=== PATIENT | female | born 1980 | race Caucasian/White ===

== ENCOUNTER → 2021-07-14 03:35 | Outpatient (CLI) | payer BC, SELFPAY ==
[2021-07-14 18:11] LABS: SARS-CoV-2 RNA PCR Negative
== END ==
PROVIDERS: PCP Family Medicine; Visit Provider Family Medicine
DX: R05.9 Cough, unspecified (principal); R09.89 Other specified symptoms and signs involving the circulatory and respiratory systems; R43.0 Anosmia; R43.2 Parageusia; Z20.822 Contact with and (suspected) exposure to COVID-19
CPT/HCPCS: C9803; U0003; U0005

== ENCOUNTER → 2022-01-24 10:59 | Outpatient (CLI) | payer BC, SELFPAY ==
--- NOTE | ~2022-01-24 | MMUS_ITS ---
EXAMINATION: MM diagnostic ashlee BI w leslie, US breast BI complete HISTORY: Left bloody nipple discharge for 5 days TECHNIQUE: Bilateral 3-D tomosynthesis images were performed and synthetic 2-D images were generated. Rotated medial right craniocaudal view. CAD analysis was submitted and interpreted. High resolution bilateral complete breast ultrasound including all 4 quadrants and subareolar areas was performed. COMPARISON: None BREAST PARENCHYMAL COMPOSITION: The breasts are heterogeneously dense, which may obscure small masses . FINDINGS: MAMMOGRAPHIC FINDINGS: Possible 8.7 mm irregular mass in upper mid left breast (MLO Tomosynthesis image 53/93). No correlate however is noted on CC view or ML view. No suspicious mass or architectural distortion, malignant calcification, skin thickening or retractio n is detected otherwise. Occasional bilateral benign calcifications. ULTRASOUND: No suspicious mass or shadowing of either breast is detected. Multiple bilateral breast c ysts are noted: Right breast: 12:00 3 cm from nipple: 7 x 4.7 x 8.1 mm cyst 1:00 4 cm from nipple: 7 mm simple cyst 1:00 2 cm from nipple: 3.3 x 2.4 x 4.6 mm cyst 4:00 3 cm from nipple: 4.8 x 4 x 4.9 mm cyst 5:00 3 cm from nipple: 7.2 x 5.1 x 4.4 mm cyst 8:00 7 cm from nipple: 5.1 x 5.8 x 5 mm cyst 10:00 5 cm from nipple: 3.6 x 6.4 mm cyst 10:00 4 cm from nipple: 6.8 x 6.9 x 4.3 mm cyst Left breast: 12:00 1 cm from nipple: 5.1 x 2.8 x 5.4 mm cyst 2:00 7 cm from nipple: 3.8 x 3.6 x 4.4 mm cyst 2:00 5 cm from nipple: 5 x 4.2 x 4.9 mm cyst 4:00 6 cm from nipple: Parallel circumscribed hypoechoic lesion measuring 2.8 x 4.9 x 5 mm, without i nternal vascularity or posterior shadowing, with some through transmission, likely a septated cyst 4:00 6 cm from nipple: 3.2 x 2.6 x 2.8 mm cyst 10:00 5 cm from nipple: 5.3 x 3.3 x 4.4 mm cyst 10:00 5 cm from nipple: 2.5 x 3.4 mm x 4.1 mm cyst Subareolar area: 5.9 x 3.7 x 5.7 mm cyst IMPRESSION: 1. Bilateral breast cysts; no mammographic evidence of malignancy 2. Routine mammographic screening is recommended., Galactography may be of benefit as clinically appr opriate. BI-RADS Category 2: Benign finding(s). Reviewed, dictated and finalized at location A. IMPRESSION: 1. Bilateral breast cysts; no mammographic evidence of malignancy 2. Routine mammographic screening is recommended., Galactography may be of bene fit as clinically appropriate. BI-RADS Category 2: Benign finding(s).
== END ==
PROVIDERS: PCP Family Medicine; Visit Provider Physician Assistant
DX: N64.52 Nipple discharge (principal); Z80.3 Family history of malignant neoplasm of breast
CPT/HCPCS: 76641; 77062; 77066; G0279

== ENCOUNTER 2023-05-05 00:54 | Day surgery (SDC) | payer BC, SELFPAY ==
[2023-04-26 10:20] VITALS: BMI 28.3
[2023-05-05 07:43] VITALS: BP 135/97; PULSE 74; RESP 20; TEMP 36.6; O2SAT 100
[2023-05-05] MEDS: LACTATED RINGERS 1,000 ML 150 ML IV CONT (07:57)
--- NOTE | 2023-05-05 08:39 | WPDANESEPPF ---
Anes - Initial Pre Proc Eval Procedure: Operation Date: 05/05/23 09:00 Proposed Procedures p Colonoscopy - Rafa Senior MD Date/Time: 05/05/23 08:39 Surgeon: Rafa Senior MD Pre Op Diagnosis: diarrhea Patient Data Age: 42 Gender: F Height: 1.57 m Weight: 72.9 kg Last Vital Signs Temp 97.8 F 05/05/23 07:43 Pulse 74 05/05/23 07:43 Resp 20 05/05/23 07:43 BP 135/97 H 05/05/23 07:43 Pulse Ox 100 05/05/23 07:43 O2 Del Method Room Air 05/05/23 07:43 Allergies Allergy/AdvReac Type Severity Reaction Status Date / Time MARY Inhibitors Allergy Unknown Unknown Verified 05/05/23 07:42 sertraline Allergy Unknown unable to Verified 05/05/23 07:42 sleep, vomiting Cat Dander Allergy Mild Unknown Uncoded 05/05/23 07:42 Home Medications Medication Instructions Recorded Confirmed Type buspirone 15 mg tablet 15 mg PO DAILY 09/24/19 04/28/23 History cariprazine 1.5 mg capsule 1.5 mg PO DAILY 09/24/19 04/28/23 History cholecalciferol (vitamin D3) 1,250 1,250 mcg PO DAILY 09/24/19 04/28/23 History mcg (50,000 unit) capsule fluoxetine 10 mg capsule 10 mg PO DAILY 09/24/19 04/28/23 History murvbnxyodmj-Zu-laxx-minerals 1 tablet PO DAILY 09/24/19 04/28/23 History (Multiple Vitamin, Womens tablet) dicyclomine 10 mg capsule 10 mg PO BID #180 caps 04/23/20 04/28/23 Rx norethindrone 1 mg-ethinyl 1 tablet PO DAILY 01/24/22 04/28/23 History estradiol 10 mcg (24)-iron 10 mcg(2) tablet amitriptyline 10 mg tablet See Rx Instructions .Route 03/31/23 04/28/23 Rx .COMPLEX #60 tabs potassium chloride 10 mEq 10 meq PO DAILY #30 caps 03/31/23 04/28/23 Rx capsule,extended release Patient hx anesthesia problems: none Family hx anesthesia problems: none Results Review: All pre-operative results and documents have been reviewed as part of the pre-operative evaluation. [facility] Past Medical History Medical History Abnormal glandular Papanicolaou smear of cervix Anogenital (venereal) warts Encounter for gastric sleeve procedure Hypertension Mixed obsessional thoughts and acts Nipple discharge L breast dx and u/s benign. return to yearly mammogram Panic attack as reaction to stress Right rotator cuff tendinitis Surgical History Surgical History H/O breast biopsy H/O gastric sleeve Hx of cholecystectomy [place] teeth removed 1995 Family History Family History Mother Hypertension Family history of malignant neoplasm of breast Grandparent Hypertension Family history of malignant neoplasm Family history of lung cancer Sibling Hypertension Other Asthma Depression Family history of arthritis Social History Social History Smoking status: Never smoker Alcohol intake: never Substance use: never Lack of Transportation: No Lack of Food: Never True Current Housing: I Have Housing Concerned About Future Housing: No Difficulty Paying Gas/Electric Bills: No Difficulty Paying for Meds: No Currently Unemployed: No Education: Master's Degree or Higher Difficulty w/ Childcare or Family Care: No Living arrangements: with family Additional living arrangements comments: Lives w/ spouse and child. Occupation/Education: occupation Additional occupation/education comments: [employer] Spiritual care concerns: No Anes - Eval Final PreProcedure Day of Procedure 05/05/23 08:39 Patient weight: normal Heart: regular rate and rhythm Lungs: clear to auscultation Airway: Mallampati scale class II Neurological: alert and oriented Last oral intake: >/= 8 hours ASA classification: II Emergent: no Anesthetic plan: proceed Anesthesia type and monitoring: general GIVS and s
--- NOTE | 2023-05-05 08:51 | WPDHPUPDATE1 ---
History and Physical Update Update Date/Time: 05/05/23 08:51 History and Physical has been reviewed, including an updated exam of the patient. There are NO changes in the patient's condition. Risks, benefits, and alternatives have been discussed and questions answered. Patient agrees to proceed with procedure.
[2023-05-05 09:13] VITALS: BP 121/94; PULSE 81; RESP 18; O2SAT 100
[2023-05-05 09:23] VITALS: BP 138/90; PULSE 78; RESP 17; O2SAT 100
[2023-05-05 09:33] VITALS: BP 142/99; PULSE 66; RESP 20; O2SAT 100
== END 2023-05-05 09:43 | disposition home or self-care (01) ==
PROVIDERS: PCP Family Medicine; Visit Provider Internal Medicine Gastroenterology
PROC: 0DJD8ZZ Inspection of Lower Intestinal Tract, Via Natural or Artificial Opening Endoscopic (ICD-10-PCS; CPT 45378; principal; 2023-05-05 09:00)
DX: R19.7 Diarrhea, unspecified (principal); K57.30 Diverticulosis of large intestine without perforation or abscess without bleeding; K64.8 Other hemorrhoids; I10 Essential (primary) hypertension; Z98.84 Bariatric surgery status
CPT/HCPCS: 45380; 88305; J2704; J7120